=== PATIENT | male | born 1950 | race Caucasian/White ===

== ENCOUNTER 2018-08-18 13:00 | Inpatient (IN) | payer OTHER ==
[~2018-08-18] VITALS: Ht 180.3 cm; Wt 67.6 kg
[2018-08-21 15:06] VITALS: BP 127/82
[2018-08-21 15:13] LABS: BASOPHILS % (AUTO) 0.8 % (0.0-5.0); EOSINOPHILS % (AUTO) 7.8 % (0.0-8.0); HEMATOCRIT 44.7 % (42-54); LYMPHOCYTES % (AUTO) 18.3 % (21.0-51.0); MEAN CORPUSCULAR HEMOGLOBIN 31.5 pg (27.0-33.0); MEAN CORPUSCULAR VOLUME 92.6 fL (79-99); MONOCYTES % (AUTO) 7.2 % (3.0-13.0); NEUTROPHILS % (AUTO) 65.9 % (40.0-77.0); PLATELET COUNT (AUTO) 158 K/uL (130-400); RED BLOOD CELL COUNT(AUTO) 4.83 MIL/uL (4.50-6.20); WHITE BLOOD COUNT (AUTO) 7.6 K/uL (4.8-10.8)
[2018-08-21 15:22] LABS: POTASSIUM 4.5 mmol/L (3.5-5.1)
[2018-08-21 15:26] LABS: APPEARANCE,URINE Clear (CLEAR); BILIRUBIN,URINE Negative (NEGATIVE); COLOR,URINE Dark Yellow (YELLOW); GLUCOSE, URINE (UA) Negative (NEGATIVE); KETONES,URINE Negative (NEGATIVE); LEUKOCYTE ESTERASE ,URINE Trace (NEGATIVE); NITRATE,URINE Negative (NEGATIVE); OCCULT BLOOD,URINE Large (NEGATIVE); PH,URINE 5.5 (5.0-8.0); PROTEIN,URINE POS 1+ (NEGATIVE)
[2018-08-21 15:26] LABS: INR 0.97 (0.85-1.15); PARTIAL THROMBOPLASTIN TIME 28.7 SEC (26.3-35.5); PROTHROMBIN TIME 10.2 SEC (9.6-11.6)
[2018-08-21] MEDS ORDERED: ATOR40TA71 PO (15:34)
[2018-08-21] MEDS ORDERED: ASPI-1181 PO (15:34)
[2018-08-21] MEDS ORDERED: ALPR0.5T8 PO (15:34)
[2018-08-21] MEDS ORDERED: TIOT4MIS5 IH (15:34)
[2018-08-21] MEDS ORDERED: FLUT1AER IH (15:34)
[2018-08-21] MEDS ORDERED: CARV25TA PO (15:34)
[2018-08-21] MEDS ORDERED: UBID100C45 PO (15:34)
[2018-08-21] MEDS ORDERED: AMLO5TAB7 PO (15:34)
[2018-08-21] MEDS ORDERED: PANT40TA25 PO (15:34)
[2018-08-21] MEDS ORDERED: RAMI10CA69 PO (15:34)
[2018-08-21 15:40] LABS: RBC,URINE 26-50 /HPF (0-1)
[2018-08-21 15:41] LABS: BACTERIA,URINE Rare /HPF (None Seen); MUCUS,URINE Few LPF (None Seen); SQUAMOUS EPITHELIAL CELL,UR Rare /HPF (0-2)
[2018-08-22] VITALS (19 sets, daily range): BP systolic 123–166; BP diastolic 68–98
[2018-08-22] MEDS ORDERED: SODIUM CHLORIDE 0.9% 1000ML 1,000 ML IV ONE (05:48)
[2018-08-22] MEDS ORDERED: LABETALOL HCL 5 MG/ML 20ML VIAL IV ONE (05:56)
[2018-08-22] MEDS ORDERED: PHENYLEPHRINE HCL 10 MG/ML 1ML VIAL IV ONE (05:56)
[2018-08-22] MEDS ORDERED: LIDOCAINE HCL-MPF 1% 2ML VIAL ONE (05:57)
[2018-08-22] MEDS ORDERED: NITROGLYCERIN 50 MG/D5% WATER 1 BOT ONE (05:57)
[2018-08-22] MEDS ORDERED: NOREPINEPHRINE BITARTRATE 1 MG/1 ML ML IV ONE (05:59)
[2018-08-22] MEDS ORDERED: SUCCINYLCHOLINE 200MG/10ML SYR ONE (06:00)
[2018-08-22] MEDS ORDERED: LIDOCAINE PF 2% 5ML ABBOJECT ONE ×2 (06:00→06:46)
[2018-08-22] MEDS ORDERED: ROCURONIUM 10MG/1ML SYR 10 MG/ML ML ONE (06:01)
[2018-08-22] MEDS ORDERED: GLYCOPYRROLATE 1 MG/5 ML SYRINGE ONE (06:01)
[2018-08-22] MEDS ORDERED: NEOSTIGMINE 5MG/5ML SYR IV ONE (06:01)
[2018-08-22] MEDS ORDERED: PROPOFOL 10 MG/ML 20ML VIAL IV ONE (06:01)
[2018-08-22] MEDS ORDERED: FENTANYL CITRATE PF 50 MCG/1 ML 2ML VIAL ONE ×2 (06:02)
[2018-08-22] MEDS ORDERED: CEFAZOLIN SODIUM 1 GM VIAL ONE (06:37)
[2018-08-22] MEDS ORDERED: HEPARIN SODIUM 1000UNIT/ML 10ML VIAL ONE (06:55)
[2018-08-22] MEDS ORDERED: IOHEXOL 350 MG/ML 100ML INFUS..BTL IV ONE (06:56)
[2018-08-22] MEDS ORDERED: ACETAMINOPHEN 325 MG TAB PO PRN (09:15)
[2018-08-22] MEDS ORDERED: ACETAMINOPHEN-CODEINE 300/30MG TAB PO PRN (09:15)
[2018-08-22] MEDS ORDERED: IPRATROPIUM 0.5 MG/2.5 ML INH IH PRN (09:15)
[2018-08-22] MEDS ORDERED: ONDANSETRON HCL 4 MG/2 ML VIAL ONE (09:17)
[2018-08-22] MEDS ORDERED: BENZOCAINE/MENTH/CETYLPYRD CL 1 EACH LOZENGE MM PRN (12:00)
[2018-08-22] MEDS: ALBUTEROL SULFATE 0.083% 2.5 MG/3 ML INH IH SCH ×2 (13:26→21:43)
[2018-08-22] MEDS: MORPHINE SULFATE 4 MG/1ML SYG IV PRN ×4 (13:32→20:15)
[2018-08-22] MEDS: SODIUM CHLORIDE 0.9% 1000ML 1,000 ML IV SCH ×2 (13:35→22:00)
[2018-08-22] MEDS: CEFAZOLIN SODIUM 1 GM VIAL IVP SCH ×2 (14:49→23:43)
[2018-08-22] MEDS ORDERED: ATORVASTATIN CALCIUM 20 MG TABLET PO SCH (21:00)
[2018-08-22] MEDS ORDERED: ALPRAZOLAM 0.25 MG TABLET PO SCH (21:00)
[2018-08-22] MEDS ORDERED: TEMAZEPAM 7.5 MG CAPSULE PO SCH (21:00)
[2018-08-22] MEDS ORDERED: ALPRAZOLAM 0.5 MG TABLET ONE (21:06)
[2018-08-22] MEDS: AMLODIPINE BESYLATE 5 MG TAB PO SCH (21:16)
[2018-08-22] MEDS: LISINOPRIL 20 MG TABLET PO SCH (21:17)
[2018-08-22] MEDS: CARVEDILOL 25 MG TABLET PO SCH (21:17)
[2018-08-22] MEDS: BUDESONIDE 0.5 MG/2 ML INH IH SCH (21:53)
[2018-08-23] VITALS (19 sets, daily range): BP systolic 85–144; BP diastolic 41–89
[2018-08-23 03:34] LABS: HEMATOCRIT 38.3 % (42-54); MEAN CORPUSCULAR HEMOGLOBIN 31.9 pg (27.0-33.0); MEAN CORPUSCULAR HGB CONC 34.8 g/dL (32.0-36.0); MEAN CORPUSCULAR VOLUME 91.6 fL (79-99); PLATELET COUNT (AUTO) 105 K/uL (130-400); RED BLOOD CELL COUNT(AUTO) 4.18 MIL/uL (4.50-6.20); WHITE BLOOD COUNT (AUTO) 8.2 K/uL (4.8-10.8)
[2018-08-23 03:45] LABS: CREATININE 0.7 mg/dL (0.5-1.5); POTASSIUM 3.5 mmol/L (3.5-5.1)
[2018-08-23] MEDS: ALBUTEROL SULFATE 0.083% 2.5 MG/3 ML INH IH SCH ×2 (06:04→13:28)
[2018-08-23] MEDS: BUDESONIDE 0.5 MG/2 ML INH IH SCH (06:16)
[2018-08-23] MEDS ORDERED: PANTOPRAZOLE SODIUM 40 MG TABLET.DR PO SCH (07:30)
[2018-08-23] MEDS ORDERED: DOCU-116 PO (08:41)
[2018-08-23] MEDS: LISINOPRIL 20 MG TABLET PO SCH (08:44)
[2018-08-23] MEDS ORDERED: POTASSIUM CHLORIDE 20 MEQ ERTAB PO SCH ×2 (08:45→14:00)
[2018-08-23] MEDS ORDERED: MAGNESIUM HYDROXIDE 30 ML/UDCUP PO SCH (08:45)
[2018-08-23] MEDS: AMLODIPINE BESYLATE 5 MG TAB PO SCH (08:45)
[2018-08-23] MEDS: CARVEDILOL 25 MG TABLET PO SCH (08:45)
[2018-08-23] MEDS ORDERED: UBIDECARENONE 100 MG PO SCH (09:00)
[2018-08-23] MEDS ORDERED: ASPIRIN 81 MG EC TAB PO SCH (09:00)
== END 2018-08-23 14:25 | disposition home or self-care (01) | DRG 269 ==
LOC: EDSTATUS 13:00 → DAHIP 08-22 05:30 → 2CH 08-22 09:43
PROVIDERS: ADMIT Internal Medicine Cardiovascular Disease; ATTEND Internal Medicine Cardiovascular Disease
PROC: 04V03DZ Restriction of Abdominal Aorta with Intraluminal Device, Percutaneous Approach (ICD-10-PCS; principal; 2018-08-22)
PROC: B4101ZZ Fluoroscopy of Abdominal Aorta using Low Osmolar Contrast (ICD-10-PCS; 2018-08-22)
DX: I71.4 Abdominal aortic aneurysm, without rupture (principal); I10 Essential (primary) hypertension; J44.9 Chronic obstructive pulmonary disease, unspecified; E78.5 Hyperlipidemia, unspecified; N20.0 Calculus of kidney; F41.9 Anxiety disorder, unspecified; Z88.1 Allergy status to other antibiotic agents
CPT/HCPCS: 34705; 34713; 36415; 71045; 80048; 81001; 85025; 85027; 85347; 85610; 85730; 86850; 86900; 86901; 86922; 93005; 94640; 94664; A4344; C1725; C1760; C1769; C1887; C1894; J0330; J0690; J1644; J2001; J2270; J2370; J2405; J2704; J2710; J3010; J3490; J7030; Q9967

== ENCOUNTER → 2019-03-19 | Outpatient (CLI) | payer OTHER ==
[~2019-03-19] MED LIST: ALPR0.5T8 PO; AMLO5TAB9 PO; ASPI-1181 PO; ATOR40TA71 PO; CARV25TA PO; DOCU-116 PO; FLUT1AER IH; IOHEXOL 350 MG/ML 100ML INFUS..BTL IV ONE; PANT40TA25 PO; RAMI10CA69 PO; TIOT4MIS5 IH; UBID100C45 PO
== END | disposition home or self-care (01) ==
LOC: RAH 08:43
PROVIDERS: ATTEND Internal Medicine Cardiovascular Disease
DX: I71.4 Abdominal aortic aneurysm, without rupture (principal); N28.1 Cyst of kidney, acquired; N32.89 Other specified disorders of bladder; I70.90 Unspecified atherosclerosis; K57.90 Diverticulosis of intestine, part unspecified, without perforation or abscess without bleeding; K76.0 Fatty (change of) liver, not elsewhere classified; J44.9 Chronic obstructive pulmonary disease, unspecified; M47.815 Spondylosis without myelopathy or radiculopathy, thoracolumbar region; J84.10 Pulmonary fibrosis, unspecified
CPT/HCPCS: 74174; Q9967